=== PATIENT | female | born 1960 | race Caucasian/White ===

== ENCOUNTER 2018-04-15 14:16 | Outpatient (CLI) | payer OTHER ==
--- NOTE | 2018-04-15 20:56 | RAD ---
CHEST THREE VIEWS: 04/15/18 The heart is normal in size and the lungs are clear. No acute infiltrate, effusion, or other parenchy mal change of concern was found. Mediastinum appears normal. The trachea is midline. IMPRESSION: No acute finding. POS: HOME
== END 2018-04-15 14:17 | disposition home or self-care (01) ==
LOC: BURRAD 14:16
PROVIDERS: ATTEND Physician Assistant
DX: J40 Bronchitis, not specified as acute or chronic (principal)
CPT/HCPCS: 71046